=== PATIENT | female | born 1940 | race Caucasian/White ===

== ENCOUNTER 2023-02-11 08:47 | Outpatient (CLI) | payer MEDICARE, BC ==
[2023-02-11] MEDS ORDERED: Iopamidol 370 76% 100 ML VIAL ONE (11:27)
== END 2023-02-11 08:48 | disposition home or self-care (01) ==
LOC: CSHCT 08:47
PROVIDERS: ATTEND Internal Medicine Cardiovascular Disease
DX: Z01.810 Encounter for preprocedural cardiovascular examination (principal); I48.19 Other persistent atrial fibrillation
CPT/HCPCS: 71275